=== PATIENT | female | born 1950 | race Two or more races ===

== ENCOUNTER 2017-10-10 19:00 | Emergency (ER) | payer SELFPAY ==
[~2017-10-10] VITALS: Ht 154.9 cm; Wt 78.5 kg
[2017-10-10 19:27] VITALS: BP 136/59
--- NOTE | 2017-10-10 19:40 | Emergency Room Report ---
History of Present Illness General Chief Complaint: Pain Source: Patient (Geneva Lanza) Present Illness HPI Patient is a 59-year-old female who presents today status post mechanical fall 10 days ago. She states she tripped and out landing on her right arm. She states pain is currently 9/10 in severity and she's been taking Motrin with little relief. She denies any numbness, tingling, loss of sensation. She denies any head trauma or loss of consciousness (Geneva Lanza) Allergies: Coded Allergies: No Known Allergies (Unverified , 10/10/17) Patient History Now: No Reviewed Nursing Documentation: PMH: Agreed, PSxH: Agreed (Geneva Lanza) Nursing Documentation-PMH Past Medical History: No Stated History (Geneva Lanza) Review of Systems Musculoskeletal: Reports: other - right arm pain All Other Systems: negative except mentioned in HPI (Geneva Lanza) Physical Exam Vital Signs Date Time Temp Pulse Resp B/P (MAP) Pulse Ox O2 Delivery O2 Flow Rate FiO2 10/10/17 19:24 97.5 57 14 136/59 96 Room Air Sp02 EP Interpretation: reviewed, normal General Appearance: no apparent distress, alert, GCS 15, non-toxic Head: normocephalic, atraumatic Eyes: bilateral eye normal inspection, bilateral eye PERRL ENT: hearing grossly normal, normal pharynx, no angioedema, normal voice Neck: full range of motion, supple/symm/no masses Respiratory: chest non-tender, lungs clear, normal breath sounds, speaking full sentences Cardiovascular #1: regular rate, rhythm, no edema Cardiovascular #2: 2+ carotid (R), 2+ carotid (L), 2+ radial (R), 2+ radial (L) , 2+ dorsalis pedis (R), 2+ dorsalis pedis (L) Gastrointestinal: normal bowel sounds, non tender, soft, non-distended, no guarding, no rebound Rectal: deferred Genitourinary: normal inspection, no CVA tenderness Musculoskeletal: back normal, gait/station normal, normal range of motion, other - TTP over the right humerus Neurologic: alert, oriented x3, responsive, motor strength/tone normal, sensory intact, speech normal Psychiatric: judgement/insight normal, memory normal, mood/affect normal, no suicidal/homicidal ideation Reflexes: 3+ bicep (R), 3+ bicep (L), 3+ tricep (R), 3+ tricep (L), 3+ knee (R) , 3+ knee (L) Skin: normal color, no rash, warm/dry, well hydrated Lymphatic: no adenopathy (Geneva Lanza) Medical Decision Making PA Attestation Supervising physician is Dr. Cabello (Geneva Lanza) Diagnostic Impression: Primary Impression: Right arm pain Additional Impressions: Fall Sprain of right upper arm ER Course No evidence of fracture on x-ray. Patient is placed in an Tio wrap, neurovascularly intact before and after Tio wrap was placed. Reevaluation at 2021, patient states is improving the medication. Patient discharged home with symptomatic relief instructed to follow up with PCP for reevaluation. Patient understands and is agreeable with plan. (Geneva Lanza) ER Course I have reviewed the PA's interpretation of Xray results and agree with findings. (Leandro Cabello M.D.) Other X-Ray Diagnostic Results Other X-Ray Diagnostic Results : # of Views/Limited Vs Complete: 4 View Indication: Pain EP Interpretation: Yes PA Xray: Interpretation reviewed Interpretation: no dislocation, no soft tissue swelling, no fractures Impression: No acute disease Electronically Signed by: sonia (Geneva LanzaAMaria Elena) Last Vital Signs Date Time Temp Pulse Resp B/P (MAP) Pulse Ox O2 Delivery O2 Flow Rate FiO2 10/10/17 19:27 97.5 53 14 136/59 96 Room Air Status: improved (Geneva Lanza P.AMaria Elena) Disposition: HOME, SELF-CARE Condition: Stable Scripts Tramadol Hcl* (ULTRAM*) 50 Mg Tablet 50 MG ORAL Q6H Y for For Pain, #30 TAB 0 Refills Prov: Geneva Lanza 10/10/17 Patient Instructions: Chronic Pain Geneva Lanza Oct 10, 2017 19:40 Leandro Cabello M.D. Oct 15, 2017 06:51
[2017-10-10] MEDS ORDERED: Norco 5mg/325mg tab ORAL ONE (19:45)
[2017-10-10] MEDS ORDERED: TRAMADOL HCL50 MG ORAL (20:23)
[2017-10-10 20:40] VITALS: BP 144/63
--- NOTE | 2017-10-11 09:47 | Diagnostic Imaging Report ---
Indication: PAIN Technique: XRAY HUMERUS 2V RIGHT Comparison: None. Findings: The osseous structures are intact. There is no fracture or destruction. The visualized joints are normal. The soft tissues are unremarkable. Impression: Normal.
== END 2017-10-10 20:45 | disposition home or self-care (01) ==
LOC: EMR 20:45
DX: S53.491A Other sprain of right elbow, initial encounter (principal); W01.0XXA Fall on same level from slipping, tripping and stumbling without subsequent striking against object, initial encounter; Y92.89 Other specified places as the place of occurrence of the external cause
CPT/HCPCS: 99283